=== PATIENT | male | born 1950 | race Caucasian/White ===

== ENCOUNTER 2018-01-21 06:31 | Day surgery (SDC) | payer OTHER, MEDICARE, MEDICAID ==
[~2018-01-21] VITALS: Ht 144.8 cm; Wt 50.0 kg
[2018-01-21] MEDS ORDERED: RINGERS SOLUTION,LACTATED 1,000 ML IV ONE ×2 (07:00→07:11)
[2018-01-21] MEDS ORDERED: CHLO4TAB96 PO (07:25)
[2018-01-21] MEDS ORDERED: TROS20TA3 PO (07:25)
[2018-01-21] MEDS ORDERED: ZIPR60CA2 PO (07:25)
[2018-01-21] MEDS ORDERED: DOCU250C91 PO (07:25)
[2018-01-21] MEDS ORDERED: LAMO100 PO (07:25)
[2018-01-21] MEDS ORDERED: TRAZ150 PO (07:25)
[2018-01-21] MEDS ORDERED: GUAIF10 PO (07:25)
[2018-01-21] MEDS ORDERED: LACT10SO46 PO (07:25)
[2018-01-21] MEDS ORDERED: LEVO125 PO (07:25)
[2018-01-21] MEDS ORDERED: AMPICILLIN SODIUM 1 GM/VIAL ONE (09:05)
[2018-01-21] MEDS ORDERED: FentaNYL CITRATE-PF 100 MCG/2 ML VIAL IVP ONE (12:00)
[2018-01-21] MEDS ORDERED: ONDANSETRON HCL 4 MG/2 ML VIAL IVP ONE (12:00)
[2018-01-21] MEDS ORDERED: PROPOFOL 1% 20 ML VIAL IVP ONE (12:00)
[2018-01-21] MEDS ORDERED: LIDOCAINE/PF 2% 5 ML VIAL INJ ONE (12:00)
[2018-01-21] MEDS ORDERED: ROCURONIUM BROMIDE 10 MG/ML 5 ML VIAL IVP ONE (12:00)
[2018-01-21] MEDS ORDERED: MIDAZOLAM HCL 2 MG/2 ML VIAL IVP ONE (12:00)
== END 2018-01-21 11:45 | disposition home or self-care (01) ==
LOC: SURGERY 06:31
PROVIDERS: ATTEND Dentist General Practice
DX: K05.30 Chronic periodontitis, unspecified (principal); E03.9 Hypothyroidism, unspecified; F31.89 Other bipolar disorder; G80.8 Other cerebral palsy; F72 Severe intellectual disabilities; C44.319 Basal cell carcinoma of skin of other parts of face; F63.81 Intermittent explosive disorder; Z79.891 Long term (current) use of opiate analgesic; Z79.899 Other long term (current) drug therapy
CPT/HCPCS: 41899; J0290; J2250; J2405; J2704; J3010; J3490 ×2; J7120

== ENCOUNTER 2021-05-11 06:45 | Day surgery (SDC) | payer OTHER, MEDICARE, MEDICAID ==
[~2021-05-11] VITALS: Ht 144.8 cm; Wt 47.7 kg
[~2021-05-11 06:45] MED LIST: CHLO4TAB96 PO; DOCU-350 PO; GUAIF10 PO; LACT10SO46 PO; LAMO100 PO; LEVO125 PO; RINGERS SOLUTION,LACTATED 1,000 ML IV ONE; TRAZ150T80 PO; TROS20TA3 PO; ZIPR60CA2 PO
[2021-05-11] MEDS ORDERED: ONDANSETRON HCL 4 MG/2 ML VIAL IVP ONE (06:46)
[2021-05-11] MEDS ORDERED: LIDOCAINE/PF 2% 5 ML VIAL IM ONE (06:46)
[2021-05-11] MEDS ORDERED: FentaNYL CITRATE PF 100 MCG/2 ML VIAL IVP ONE (06:46)
[2021-05-11] MEDS ORDERED: PROPOFOL 1% 20 ML VIAL IVP ONE (06:46)
[2021-05-11] MEDS ORDERED: ROCURONIUM BROMIDE 10 MG/ML 5 ML VIAL IVP ONE (06:46)
[2021-05-11] MEDS ORDERED: 0.9% SODIUM CHLORIDE 10 ML VIAL IVP ONE (06:46)
[2021-05-11] MEDS ORDERED: DEXAMETHASONE SOD PHOS 4 MG/ML VIAL IVP ONE (06:46)
[2021-05-11 07:20] LABS: COVID AG,FIA SOURCE NASAL SWAB
[2021-05-11] MEDS ORDERED: ZIPR40CA2 PO (08:18)
[2021-05-11 08:31] LABS: EOSINOPHILS % (AUTO) 0.9 % (1.0-6.0); HEMATOCRIT 40.8 % (41-53); HEMOGLOBIN 14.7 g/dL (13.5-17.5); LYMPHOCYTES # (AUTO) 1.3 K/uL (1.0-4.8); LYMPHOCYTES % (AUTO) 26.4 % (22.0-44.0); MEAN CORPUSCULAR HEMOGLOBIN 30.5 pg (26.0-34.0); MEAN CORPUSCULAR HGB CONC 35.9 G/dL (31.0-37.0); MEAN CORPUSCULAR VOLUME 85 fL (80-100); MONOCYTES # (AUTO) 0.3 K/uL (0.1-1.0); MONOCYTES % (AUTO) 6.7 % (2.0-9.0); NEUTROPHILS # (AUTO) 3.2 K/uL (1.8-7.7); PLATELET COUNT (AUTO) 188 K/uL (150-450); RED BLOOD CELL COUNT(AUTO) 4.81 MIL/uL (4.50-5.90); RED CELL DISTRIBUTION WIDTH 13.1 % (11.5-14.5)
[2021-05-11] MEDS ORDERED: AMPICILLIN SODIUM 1 GM/VIAL ONE (08:37)
[2021-05-11 08:39] LABS: ANION GAP 5 mmol/L (8-16); CALCIUM, TOTAL 9.2 mg/dL (8.8-10.5); CARBON DIOXIDE 30 mmol/L (22-29); CHLORIDE 104 mmol/L (98-107); CREATININE 0.98 mg/dL (0.60-1.30); GLUCOSE,RANDOM 91 mg/dL (70-110); POTASSIUM 4.5 mmol/L (3.5-5.1); SODIUM SERUM 139 mmol/L (136-145); UREA NITROGEN, BLOOD 27 mg/dL (7-18)
[2021-05-11 08:40] LABS: GLOMERULAR FILTR. RATE CALC > 60 mL/min (>60)
[2021-05-11 08:46] LABS: PROTHROMBIN TIME 10.3 SEC (9.4-11.6)
[2021-05-11 08:51] LABS: ALANINE AMINOTRANSFERASE 24 U/L (12-78); ALBUMIN 3.7 g/dL (3.4-5.0); ALKALINE PHOSPHATASE 74 U/L (46-116); ASPARTATE AMINOTRANSFERASE 23 U/L (15-37); BILIRUBIN,TOTAL 0.5 mg/dL (0.1-1.0); TOTAL PROTEIN, SERUM 7.5 g/dL (6.4-8.2)
== END 2021-05-11 11:50 | disposition home or self-care (01) ==
LOC: SURGERY 06:45
PROVIDERS: ATTEND Dentist General Practice
DX: K02.9 Dental caries, unspecified (principal); K05.30 Chronic periodontitis, unspecified; K03.6 Deposits [accretions] on teeth; G80.9 Cerebral palsy, unspecified; F31.9 Bipolar disorder, unspecified; E03.9 Hypothyroidism, unspecified; G40.909 Epilepsy, unspecified, not intractable, without status epilepticus; Z20.822 Contact with and (suspected) exposure to COVID-19; Z85.828 Personal history of other malignant neoplasm of skin; Z79.01 Long term (current) use of anticoagulants; Z79.899 Other long term (current) drug therapy
CPT/HCPCS: 36415; 41899; 71045; 80053; 85025; 85610; 85730; 87426; 93005; C9803; J0290; J1100; J2405; J2704; J3010; J3490 ×2; J7120

== ENCOUNTER 2022-10-18 06:39 | Day surgery (SDC) | payer OTHER, MEDICARE, MEDICAID ==
[~2022-10-18] VITALS: Ht 144.8 cm; Wt 52.3 kg
[~2022-10-18 06:39] MED LIST changes: +CHLO4TAB PO; -CHLO4TAB96 PO; +LAMO-24 PO; -LAMO100 PO; +ZIPR40CA38 PO; -ZIPR60CA2 PO
[2022-10-18 07:48] LABS: BASOPHILS % (AUTO) 0.9 % (0.0-2.0); HEMATOCRIT 38.3 % (41-53); HEMOGLOBIN 13.2 g/dL (13.5-17.5); LYMPHOCYTES % (AUTO) 18.2 % (22.0-44.0); MEAN CORPUSCULAR HEMOGLOBIN 30.1 pg (26.0-34.0); MEAN CORPUSCULAR HGB CONC 34.4 G/dL (31.0-37.0); MEAN CORPUSCULAR VOLUME 87 fL (80-100); MONOCYTES # (AUTO) 0.4 K/uL (0.1-1.0); MONOCYTES % (AUTO) 7.1 % (2.0-9.0); NEUTROPHILS # (AUTO) 3.9 K/uL (1.8-7.7); NEUTROPHILS % (AUTO) 72.8 % (40.0-70.0); PLATELET COUNT (AUTO) 190 K/uL (150-450); RED BLOOD CELL COUNT(AUTO) 4.39 MIL/uL (4.50-5.90); RED CELL DISTRIBUTION WIDTH 13.2 % (11.5-14.5)
[2022-10-18 08:04] LABS: PROTHROMBIN TIME 10.4 SEC (9.4-11.6)
[2022-10-18] MEDS ORDERED: RINGERS SOLUTION,LACTATED 1,000 ML IV ONE (08:04)
[2022-10-18 08:07] LABS: ANION GAP 7 mmol/L (8-16); CALCIUM, TOTAL 9.3 mg/dL (8.8-10.5); CARBON DIOXIDE 28 mmol/L (22-29); CHLORIDE 105 mmol/L (98-107); CREATININE 1.09 mg/dL (0.60-1.30); GLOMERULAR FILTR. RATE CALC > 60 mL/min (>60); GLUCOSE,RANDOM 96 mg/dL (70-110); POTASSIUM 4.3 mmol/L (3.5-5.1); SODIUM SERUM 140 mmol/L (136-145)
[2022-10-18] MEDS ORDERED: AMPICILLIN SODIUM 2 GM/NS 100 ML IV ONE ×2 (08:09→09:38)
[2022-10-18] MEDS ORDERED: TRAZ-252 PO (08:11)
[2022-10-18] MEDS ORDERED: LISI-893 PO (08:11)
[2022-10-18] MEDS ORDERED: FESO8TAB3 PO (08:11)
[2022-10-18] MEDS ORDERED: MU-V1TAB28 PO (08:11)
[2022-10-18] MEDS ORDERED: OLAN5TAB52 PO (08:11)
[2022-10-18] MEDS ORDERED: OLAN2.5T29 PO (08:11)
[2022-10-18 08:14] LABS: ALANINE AMINOTRANSFERASE 26 U/L (12-78); ALBUMIN 3.5 g/dL (3.4-5.0); ALKALINE PHOSPHATASE 104 U/L (46-116); ASPARTATE AMINOTRANSFERASE 20 U/L (15-37); BILIRUBIN,TOTAL 0.4 mg/dL (0.1-1.0); TOTAL PROTEIN, SERUM 7.3 g/dL (6.4-8.2)
[2022-10-18] MEDS ORDERED: CLINDAMYCIN 600 MG/D5% WATER 50 ML IV ONE (08:30)
[2022-10-18] MEDS ORDERED: DEXAMETHASONE SOD PHOS 4 MG/ML VIAL IVP ONE (12:00)
[2022-10-18] MEDS ORDERED: PROPOFOL 1% 20 ML VIAL IVP ONE (12:00)
[2022-10-18] MEDS ORDERED: LIDOCAINE/PF 2% 5 ML VIAL IM ONE (12:00)
[2022-10-18] MEDS ORDERED: ONDANSETRON HCL 4 MG/2 ML VIAL IVP ONE (12:00)
[2022-10-18] MEDS ORDERED: ROCURONIUM BROMIDE 10 MG/ML 5 ML VIAL IVP ONE (12:00)
[2022-10-18] MEDS ORDERED: SUGAMMADEX SODIUM 200 MG/2 ML VIAL IVP ONE (12:00)
== END 2022-10-18 13:15 | disposition home or self-care (01) ==
LOC: SURGERY 06:39
PROVIDERS: ATTEND Dentist General Practice
DX: K05.30 Chronic periodontitis, unspecified (principal); K02.9 Dental caries, unspecified; K03.6 Deposits [accretions] on teeth; I10 Essential (primary) hypertension; E03.9 Hypothyroidism, unspecified; K59.00 Constipation, unspecified; G80.9 Cerebral palsy, unspecified; G40.909 Epilepsy, unspecified, not intractable, without status epilepticus; F31.9 Bipolar disorder, unspecified; F63.81 Intermittent explosive disorder; Z79.899 Other long term (current) drug therapy; Z79.01 Long term (current) use of anticoagulants; Z98.890 Other specified postprocedural states
CPT/HCPCS: 41899; 71045; 80053; 85025; 85610; 85730; 36415; 93005; J0290; J2704; J3490 ×3; J1100; J2405; Q9967; J7120

== ENCOUNTER 2024-02-26 07:02 | Day surgery (SDC) | payer OTHER, MEDICARE ==
[~2024-02-26] VITALS: Ht 144.8 cm; Wt 52.3 kg
[~2024-02-26 07:02] MED LIST changes: -CHLO4TAB PO; -DOCU-350 PO; +DOCU-412 PO; +FESO8TAB3 PO; -GUAIF10 PO; +LISI-893 PO; +MU-V1TAB28 PO; +OLAN2.5T78 PO; +OLAN5TAB52 PO; -RINGERS SOLUTION,LACTATED 1,000 ML IV ONE; +TRAZ-252 PO; -TROS20TA3 PO; -ZIPR40CA38 PO
[2024-02-26] MEDS ORDERED: PROPOFOL 1% 20 ML VIAL IVP ONE (07:03)
[2024-02-26] MEDS ORDERED: SUGAMMADEX SODIUM 200 MG/2 ML VIAL IVP ONE (07:03)
[2024-02-26] MEDS ORDERED: METOPROLOL TARTRATE 5 MG/5 ML VIAL IVP ONE (07:03)
[2024-02-26] MEDS ORDERED: DEXAMETHASONE SOD PHOS 4 MG/ML VIAL IVP ONE (07:03)
[2024-02-26] MEDS ORDERED: ROCURONIUM BROMIDE 10 MG/ML 5 ML VIAL IVP ONE (07:03)
[2024-02-26] MEDS ORDERED: LIDOCAINE/PF 2% 5 ML VIAL IM ONE (07:03)
[2024-02-26] MEDS ORDERED: ONDANSETRON HCL 4 MG/2 ML VIAL IVP ONE (07:03)
[2024-02-26] MEDS ORDERED: AMPICILLIN SODIUM 2 GM/NS 100 ML IV ONE (07:11)
[2024-02-26] MEDS ORDERED: RINGERS SOLUTION,LACTATED 1,000 ML IV ONE (07:34)
[2024-02-26 08:17] LABS: BASOPHILS % (AUTO) 0.8 % (0.0-2.0); EOSINOPHILS % (AUTO) 1.4 % (1.0-6.0); HEMATOCRIT 34.7 % (41-53); HEMOGLOBIN 12.2 g/dL (13.5-17.5); LYMPHOCYTES # (AUTO) 1.2 K/uL (1.0-4.8); LYMPHOCYTES % (AUTO) 28.1 % (22.0-44.0); MEAN CORPUSCULAR HEMOGLOBIN 30.7 pg (26.0-34.0); MEAN CORPUSCULAR HGB CONC 35.1 G/dL (31.0-37.0); MEAN CORPUSCULAR VOLUME 88 fL (80-100); MONOCYTES # (AUTO) 0.3 K/uL (0.1-1.0); MONOCYTES % (AUTO) 7.7 % (2.0-9.0); NEUTROPHILS # (AUTO) 2.7 K/uL (1.8-7.7); PLATELET COUNT (AUTO) 177 K/uL (150-450); RED BLOOD CELL COUNT(AUTO) 3.96 MIL/uL (4.50-5.90); RED CELL DISTRIBUTION WIDTH 13.2 % (11.5-14.5); WHITE BLOOD COUNT (AUTO) 4.4 K/uL (4.5-11.0)
[2024-02-26 08:29] LABS: PROTHROMBIN TIME 10.2 SEC (9.4-11.6)
[2024-02-26 08:31] LABS: CALCIUM, TOTAL 9.1 mg/dL (8.8-10.5); CREATININE 1.19 mg/dL (0.60-1.30); POTASSIUM 4.5 mmol/L (3.5-5.1)
[2024-02-26 08:38] LABS: ALBUMIN 3.2 g/dL (3.4-5.0); BILIRUBIN,TOTAL 0.3 mg/dL (0.1-1.0)
[2024-02-26] MEDS: RINGERS SOLUTION,LACTATED 1,000 ML IV ONE (09:32)
== END 2024-02-26 11:55 | disposition home or self-care (01) ==
LOC: SURGERY 07:02
PROVIDERS: ATTEND Dentist General Practice
DX: K02.9 Dental caries, unspecified (principal); K05.20 Aggressive periodontitis, unspecified; I10 Essential (primary) hypertension; E03.9 Hypothyroidism, unspecified; F31.9 Bipolar disorder, unspecified; G80.9 Cerebral palsy, unspecified; Z98.890 Other specified postprocedural states
CPT/HCPCS: 41899; 71045; 80053; 85025; 85610; 85730; 36415; 93005; J0290; J2704; J1100; J3490 ×4; J2405; J7120; Z7610